=== PATIENT | male | born 1975 | race Two or more races ===

== ENCOUNTER 2022-05-13 16:45 | Emergency (ER) | payer OTHER | END 2022-05-13 18:00 | disposition home or self-care (01) | LOC: JD.ED 16:45 | DX: S89.91XA Unspecified injury of right lower leg, initial encounter (principal); F17.210 Nicotine dependence, cigarettes, uncomplicated; E66.9 Obesity, unspecified; Z68.37 Body mass index [BMI] 37.0-37.9, adult; Z86.16 Personal history of COVID-19; W01.198A Fall on same level from slipping, tripping and stumbling with subsequent striking against other object, initial encounter; Y93.39 Activity, other involving climbing, rappelling and jumping off | CPT/HCPCS: 99283 ==